=== PATIENT | female | born 2000 | race African-American/Black ===

== ENCOUNTER 2022-01-18 22:20 | Emergency (ER) | payer MEDICAID ==
[~2022-01-18] VITALS: Ht 157.5 cm; Wt 43.6 kg
[2022-01-18 22:21] VITALS: BP 120/78; TEMP 97.1
[2022-01-18] MEDS ORDERED: CEPHALEXIN500 M1 PO ×2 (23:05→23:16)
[2022-01-18 23:15] VITALS: PULSE 89
== END 2022-01-18 23:15 | disposition home or self-care (01) ==
LOC: COL.ER 22:20
DX: L03.031 Cellulitis of right toe (principal)

== ENCOUNTER 2024-07-01 12:09 | Emergency (ER) | payer MEDICAID ==
[~2024-07-01] VITALS: Ht 157.5 cm; Wt 49.9 kg
[~2024-07-01 12:09] MED LIST: CEPHALEXIN500 M1 PO
[2024-07-01 12:15] VITALS: TEMP 98.9
[2024-07-01 14:14] LABS: BASO # 0.1 K/mm3 (0.0-0.2); BASO % 2.1 % (0.0-2.0); EOS # 0.1 K/mm3 (0.0-0.7); EOS % 2.1 % (0.0-4.0); GRAN # 1.2 K/mm3 (1.4-6.5); GRAN % 31.6 % (42.2-75.2); HEMATOCRIT 42.3 % (37.0-47.0); HEMOGLOBIN 14.1 g/dl (12.5-16.0); LYMPH # 2.2 K/mm3 (1.2-3.4); LYMPH % 58.2 % (20.0-51.0); MEAN CELL VOLUME 90 fl (80.0-100.0); MEAN CORPUSCULAR HEMOGLOBIN 30 pg (27-31); MEAN CORPUSCULAR HGB CONC 33 g/dl (33.0-37.0); MEAN PLATELET VOLUME 10.8 fl (7.4-10.4); MONO # 0.2 K/mm3 (0.1-0.6); PLATELET COUNT 260 K/mm3 (130-400); RED BLOOD COUNT 4.71 M/mm3 (4.10-5.30); REDCELL DISTRIBUTION WIDTH-CV 12.6 % (11.5-14.5)
[2024-07-01 14:33] LABS: ALANINE AMINOTRANSFERASE 11 U/L (0-55); ALKALINE PHOSPHATASE 39 U/L (40-150); ANION GAP 10 mmol/L (7-16); AST,SGOT 18 U/L (5-34); BILIRUBIN,TOTAL 0.7 mg/dL (0.2-1.2); BLOOD UREA NITROGEN 6 mg/dL (7-19); CHLORIDE 108 mEq/L (98-107); CREATININE, serum 0.83 mg/dL (0.57-1.11); GLUCOSE 95 mg/dL (70-99); POTASSIUM 3.5 mEq/L (3.5-4.5); SODIUM 141 mEq/L (136-145); TOTAL PROTEIN 7.2 g/dl (6.2-8.1)
[2024-07-01 14:44] LABS: PH 6.5 (5.0-8.5); URINE APPEARANCE CLEAR (CLEAR/HAZY); URINE BLOOD NEGATIVE (NEGATIVE); URINE COLOR YELLOW (YELLOW); URINE GLUCOSE NEGATIVE (NEGATIVE); URINE KETONE NEGATIVE (NEGATIVE); URINE NITRATE NEGATIVE (NEGATIVE); URINE PROTEIN(semi-quant) NEGATIVE (NEGATIVE); URINE UROBILINOGEN 0.2 E.U/dL (0.2-1.0)
[2024-07-01 14:48] LABS: TROPONIN-I < 0.010 ng/mL (0.00-0.033)
[2024-07-01] MEDS ORDERED: Ketorolac 15 MG/ML VIAL IV ONE (15:00)
[2024-07-01 15:58] LABS: COLLECTION METHOD CLEAN CATCH
[2024-07-01 16:02] VITALS: BP 117/78; PULSE 81
== END 2024-07-01 16:03 | disposition home or self-care (01) ==
LOC: COL.ER 12:09
PROVIDERS: Physician Assistant
DX: R07.2 Precordial pain (principal); M54.6 Pain in thoracic spine
CPT/HCPCS: J1885